=== PATIENT | male | born 1935 | race Caucasian/White ===

== ENCOUNTER → 2017-02-26 | Outpatient (CLI) | payer MEDICARE ==
--- NOTE | 2017-02-26 14:09 | REP ---
CAROTID ULTRASOUND: Real-time ultrasound evaluation and duplex Doppler interrogation of the extracranial carotid vasculature is performed. There is mild plaquing and narrowing in the right carotid bulb extending into the internal and external carotid arteries. Luminal narrowing is less than 50%. There is no evidence of hemodynamically significant stenosis of the right internal carotid artery. Normal flow velocities are seen. There is moderate partially calcified plaque in the left carotid bulb extending into the left internal carotid artery with elevated peak systolic velocity in the internal carotid artery. There is elevated ICA/CCA ratio. Findings are consistent with stenosis of the left ICA 60-79%. The vertebral arteries demonstrate normal direction of flow. RIGHT LEFT Peak systolic velocity ICA 70.9 cm/s 162 cm/s End diastolic velocity ICA 9.8 cm/s 27.2 cm/s Peak systolic velocity CCA 76.6 cm/s 78.8 cm/s Peak systolic velocity ECA 52.4 cm/s 101 cm/s ICA/CCA ratio 0.93 2.41 IMPRESSION: Luminal narrowing of the right internal carotid artery less than 50%. No evidence of hemodynamically significant stenosis on the right . 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 Signed by Biju Andino MD 02/26/2017 02:01 P
== END ==
LOC: M RAD 12:50
PROVIDERS: ATTEND Internal Medicine Cardiovascular Disease
DX: I65.23 Occlusion and stenosis of bilateral carotid arteries (principal)
CPT/HCPCS: 93880; G0463

== ENCOUNTER → 2017-04-22 | Outpatient (REF) | payer MEDICARE | LOC: M SMT 13:28 | PROVIDERS: ATTEND Urology | DX: N47.1 Phimosis (principal) ==

== ENCOUNTER 2020-03-09 21:55 | Inpatient (IN) | payer MEDICARE ==
[2020-03-10] MEDS ORDERED: cefTRIAXone SOD 1GM VIAL (J0696 PER 250MG) ONE (02:48)
[2020-03-10] MEDS ORDERED: cefTRIAXone SOD 1GM VIAL (J0696 PER 250MG) As Ordered ONE ×2 (02:48→02:49)
[2020-03-10] MEDS ORDERED: POTASSIUM CHLORIDE 10 MEQ SR TABLET ONE (04:17)
[2020-03-10] MEDS ORDERED: POTASSIUM CHLORIDE 10 MEQ SR TABLET As Ordered ONE (04:17)
[2020-03-10] MEDS ORDERED: RANOLAZINE 500 MG ER TAB ONE (10:48)
[2020-03-10] MEDS ORDERED: APIXABAN 2.5 MG TAB (ELIQUIS) As Ordered ONE (10:55)
[2020-03-10] MEDS ORDERED: CLOPIDOGREL 75 MG TAB ONE ×2 (10:55→18:07)
[2020-03-10] MEDS ORDERED: METOPROLOL TART 50 MG TAB ONE (10:55)
[2020-03-10] MEDS ORDERED: APIXABAN 2.5 MG TAB (ELIQUIS) ONE (10:55)
[2020-03-10] MEDS ORDERED: CLOPIDOGREL 75 MG TAB As Ordered ONE ×2 (10:55→18:34)
[2020-03-10] MEDS ORDERED: METOPROLOL TART 50 MG TAB As Ordered ONE (10:56)
[2020-03-10] MEDS ORDERED: ISOSORBIDE MON. (IMDUR) 60 MG XR TAB ONE (18:07)
[2020-03-10] MEDS ORDERED: ROSUVASTATIN 10 MG TAB (CRESTOR) As Ordered ONE (18:07)
[2020-03-10] MEDS ORDERED: ROSUVASTATIN 10 MG TAB (CRESTOR) ONE (18:07)
[2020-03-10] MEDS ORDERED: ISOSORBIDE MON. (IMDUR) 60 MG XR TAB As Ordered ONE (18:07)
[2020-03-11] MEDS ORDERED: CLOPIDOGREL 75 MG TAB As Ordered ONE (08:24)
[2020-03-11] MEDS ORDERED: ISOSORBIDE MON. (IMDUR) 60 MG XR TAB As Ordered ONE (08:24)
[2020-03-11] MEDS ORDERED: METOPROLOL SUCC (TopROL XL) 50MG **XL** TAB As Ordered ONE (08:25)
[2020-03-11] MEDS ORDERED: ROSUVASTATIN 10 MG TAB (CRESTOR) As Ordered ONE (08:25)
[2020-03-11] MEDS ORDERED: FUROSEMIDE 100MG/10ML VIAL (J1940) As Ordered ONE (12:29)
[2020-03-11] MEDS ORDERED: RANOLAZINE 500 MG ER TAB ONE (13:00)
[2020-03-11] MEDS ORDERED: BUMETANIDE 1 MG TAB ONE (13:00)
[2020-03-11] MEDS ORDERED: cefTRIAXone SOD 2 GM VIAL (J0696 PER 250MG) As Ordered ONE (23:59)
[2020-03-12] MEDS ORDERED: FUROSEMIDE 100MG/10ML VIAL (J1940) As Ordered ONE (08:29)
[2020-03-12] MEDS ORDERED: ISOSORBIDE MON. (IMDUR) 60 MG XR TAB As Ordered ONE (08:29)
[2020-03-12] MEDS ORDERED: ROSUVASTATIN 10 MG TAB (CRESTOR) As Ordered ONE (08:29)
[2020-03-12] MEDS ORDERED: CLOPIDOGREL 75 MG TAB As Ordered ONE (08:29)
[2020-03-12] MEDS ORDERED: METOPROLOL SUCC (TopROL XL) 50MG **XL** TAB As Ordered ONE (08:30)
[2020-03-12] MEDS ORDERED: POTASSIUM CHLORIDE 10 MEQ SR TABLET As Ordered ONE (10:09)
[2020-03-12] MEDS ORDERED: cefTRIAXone SOD 2 GM VIAL (J0696 PER 250MG) As Ordered ONE (17:13)
== END 2020-03-12 17:45 | disposition home or self-care (01) | DRG 683 ==
LOC: M ED 21:55 → M PCU 03-10 21:01
PROVIDERS: ADMIT Internal Medicine Nephrology; ATTEND Internal Medicine Nephrology
DX: N17.9 Acute kidney failure, unspecified (principal); N39.0 Urinary tract infection, site not specified; I48.20 Chronic atrial fibrillation, unspecified; L97.829 Non-pressure chronic ulcer of other part of left lower leg with unspecified severity; I13.0 Hypertensive heart and chronic kidney disease with heart failure and stage 1 through stage 4 chronic kidney disease, or unspecified chronic kidney disease; D64.9 Anemia, unspecified; R31.9 Hematuria, unspecified; E87.6 Hypokalemia; N18.3 Chronic kidney disease, stage 3 (moderate); I50.9 Heart failure, unspecified; I25.10 Atherosclerotic heart disease of native coronary artery without angina pectoris; I95.9 Hypotension, unspecified; I87.8 Other specified disorders of veins; Z79.899 Other long term (current) drug therapy; Z79.01 Long term (current) use of anticoagulants; Z95.1 Presence of aortocoronary bypass graft